=== PATIENT | female | born 1990 | race African-American/Black ===

== ENCOUNTER 2022-03-16 11:21 | Observation (INO) | payer MEDICAID ==
[2022-03-16] MEDS ORDERED: PREN-96 PO (12:50)
== END 2022-03-16 13:15 | disposition home or self-care (01) ==
LOC: ER 11:21 → LDRP 12:00
PROVIDERS: ADMIT Obstetrics & Gynecology Obstetrics; ATTEND Obstetrics & Gynecology Obstetrics
DX: O26.893 Other specified pregnancy related conditions, third trimester (principal); R10.2 Pelvic and perineal pain; Z3A.36 36 weeks gestation of pregnancy; Z98.891 History of uterine scar from previous surgery
CPT/HCPCS: 36415; 59025; 76805; 81002; 84702; 94760; 99284; G0378